=== PATIENT | male | born 1955 | race Caucasian/White ===

== ENCOUNTER 2024-04-17 12:23 | Emergency (ER) | payer MEDICARE, OTHER ==
[~2024-04-17] VITALS: Ht 170.2 cm; Wt 99.8 kg
[2024-04-17] MEDS: MORPHINE SULFATE INJ 2 MG/ML DISP.SYRIN IV ONE (14:30)
[2024-04-17] MEDS: ONDANSETRON HCL/PF 4 MG/2 ML VIAL IVP ONE (14:30)
[2024-04-17] MEDS: PANTOPRAZOLE 40 MG VIAL IV ONE (14:30)
[2024-04-17 15:14] LABS: BASOPHILS # (AUTO) 0.1 K/uL (0.0-0.2); BASOPHILS % (AUTO) 0.8 % (0.0-2.0); EOSINOPHILS # (AUTO) 0.5 K/uL (0.0-0.7); EOSINOPHILS % (AUTO) 4.3 % (0.0-6.0); HEMATOCRIT 46 % (39-51); HEMOGLOBIN 15.7 g/dL (13.5-17.5); LYMPHOCYTES # (AUTO) 1.6 K/uL (0.8-4.8); LYMPHOCYTES % (AUTO) 14.4 % (20.0-44.0); MEAN CORPUSCULAR HEMOGLOBIN 31 PG (26.0-33.0); MEAN CORPUSCULAR HGB CONC 34 g/dl (31.0-36.0); MEAN CORPUSCULAR VOLUME 89 fL (80-96); MONOCYTES # (AUTO) 0.8 K/uL (0.1-1.30); MONOCYTES % (AUTO) 6.8 % (2.0-12.0); NEUTROPHILS # (AUTO) 8.3 K/uL (1.8-8.9); NEUTROPHILS % (AUTO) 73.7 % (43.0-81.0); PLATELET COUNT (AUTO) 288 K/uL (150-450); RED BLOOD CELL COUNT(AUTO) 5.12 MIL/uL (4.5-6.0); RED CELL DISTRIBUTION WIDTH 13.9 % (11.5-15.0); WHITE BLOOD COUNT (AUTO) 11.2 K/uL (4.3-11.0)
[2024-04-17 15:19] LABS: CALCIUM, SERUM 9.3 mg/dL (8.5-10.1); POTASSIUM 3.8 mmol/L (3.5-5.1)
[2024-04-17] MEDS ORDERED: ONDANSETRON HCL/PF 4 MG/2 ML VIAL ONE (15:20)
[2024-04-17] MEDS ORDERED: PANTOPRAZOLE 40 MG VIAL ONE (15:20)
[2024-04-17] MEDS ORDERED: MORPHINE SULFATE INJ 4 MG/ML DISP.SYRIN ONE (15:20)
[2024-04-17 15:26] LABS: ALBUMIN 3.7 g/dL (3.4-5.0); BILIRUBIN,DIRECT 0.1 mg/dL (0.0-0.2); BILIRUBIN,TOTAL 0.4 mg/dL (0.2-1.0); TOTAL PROTEIN, SERUM 7.2 g/dL (6.4-8.2)
[2024-04-17 15:27] LABS: INR 0.95 (0.91-1.10); PROTHROMBIN TIME 10.1 SECS (9.2-11.1)
[2024-04-17] MEDS ORDERED: CT SWABBABLE VALVE TRANS SET 1 EA INFUS.SET MC ONE (15:52)
[2024-04-17] MEDS ORDERED: IOHEXOL-300 100 ML VIAL IV ONE (15:52)
[2024-04-17] MEDS ORDERED: IV NS 0.9% 250 ML IV ONE (15:54)
[2024-04-17 16:46] LABS: APPEARANCE,URINE Clear (CLEAR); BILIRUBIN,URINE Negative (NEGATIVE); BLOOD, URINE Negative Ery/uL (NEGATIVE); COLOR,URINE YELLOW (YELLOW); KETONES,URINE Trace mg/dL (NEGATIVE); LEUKOCYTE ESTERASE ,URINE Negative (NEGATIVE); NITRITE, URINE Negative (NEGATIVE); PROTEIN,URINE Negative (NEGATIVE); UGLUCOSE Negative (NEGATIVE); UROBILINOGEN,URINE 0.2 EU/dL (0.2)
[2024-04-17 16:50] LABS: ADD URINE CULTURE NO; BACTERIA,URINE None seen /HPF (None Seen); RBC,URINE 0-2 /HPF (0-2); SQUAMOUS EPITHELIAL CELL,UR None Seen /HPF (None Seen); WBC,URINE 0-2 /HPF (0-3)
[2024-04-17] MEDS ORDERED: KETOROLAC TROMETHAMINE INJ 30 MG/ML VIAL ONE (17:02)
[2024-04-17] MEDS: KETOROLAC TROMETHAMINE INJ 30 MG/ML VIAL IV ONE (17:07)
[2024-04-17] MEDS ORDERED: IBUP-1490 PO (18:19)
[2024-04-17] MEDS ORDERED: HYDR-3980 PO (18:19)
[2024-04-17 18:48] VITALS: BP 140/70; TEMP 97.9; O2SAT 96
== END 2024-04-17 18:49 | disposition home or self-care (01) ==
LOC: ER 12:34
DX: S22.31XA Fracture of one rib, right side, initial encounter for closed fracture (principal); I11.0 Hypertensive heart disease with heart failure; I50.9 Heart failure, unspecified; R10.11 Right upper quadrant pain; X58.XXXA Exposure to other specified factors, initial encounter; Y93.89 Activity, other specified; Y92.89 Other specified places as the place of occurrence of the external cause; Y99.8 Other external cause status
CPT/HCPCS: 99285; 96374; 71270; 96375; 71045; 93005; 85025; 80048; 83690; 80076; 81001; 36415; 84443; 85730; J1885; J2270; J2405; J7050; J2470; Q9967; 74178

== ENCOUNTER 2024-05-27 08:12 | Emergency (ER) | payer MEDICARE, OTHER ==
[~2024-05-27] VITALS: Ht 170.2 cm; Wt 99.8 kg
[~2024-05-27 08:12] MED LIST: HYDR-3980 PO; IBUP-1490 PO
[2024-05-27] MEDS ORDERED: LIDOCAINE 5% (PATCH) 1 EA PATCH TP ONE (08:23)
[2024-05-27] MEDS ORDERED: KETOROLAC TROMETHAMINE 15 MG/ML VIAL ONE (08:23)
[2024-05-27] MEDS ORDERED: CYCLOBENZAPRINE 10 MG TABLET ONE (08:24)
[2024-05-27] MEDS ORDERED: HYDROCODONE/APAP 5/325MG TABLET ONE (08:24)
[2024-05-27] MEDS: LIDOCAINE 5% (PATCH) 1 EA PATCH TP STA (08:30)
[2024-05-27] MEDS: CYCLOBENZAPRINE 10 MG TABLET PO ONE (08:32)
[2024-05-27] MEDS: KETOROLAC TROMETHAMINE 15 MG/ML VIAL IM ONE (08:32)
[2024-05-27] MEDS: HYDROCODONE/APAP 5/325MG TABLET PO ONE (08:33)
[2024-05-27] MEDS ORDERED: IBUP-1955 PO (09:37)
[2024-05-27] MEDS ORDERED: LIDO30AD10 TP (09:37)
[2024-05-27] MEDS ORDERED: CYCL5TAB PO (09:37)
[2024-05-27 10:47] VITALS: BP 165/90; TEMP 97.6; O2SAT 97
== END 2024-05-27 10:48 | disposition home or self-care (01) ==
LOC: ER 08:28
DX: S22.31XA Fracture of one rib, right side, initial encounter for closed fracture (principal); R07.81 Pleurodynia; I10 Essential (primary) hypertension; X58.XXXA Exposure to other specified factors, initial encounter; Y93.89 Activity, other specified; Y92.89 Other specified places as the place of occurrence of the external cause; Y99.8 Other external cause status
CPT/HCPCS: 99284; 71100; J1885

== ENCOUNTER 2024-06-12 04:39 | Inpatient (IN) | payer MEDICARE, OTHER ==
[~2024-06-12] VITALS: Ht 172.7 cm; Wt 116.1 kg
[~2024-06-12 04:39] MED LIST changes: +CYCL5TAB PO; +IBUP-1955 PO; +LIDO30AD10 TP
[2024-06-12 05:28] LABS: BASOPHILS # (AUTO) 0.1 K/uL (0.0-0.2); BASOPHILS % (AUTO) 0.7 % (0.0-2.0); EOSINOPHILS # (AUTO) 0.4 K/uL (0.0-0.7); EOSINOPHILS % (AUTO) 4.7 % (0.0-6.0); HEMATOCRIT 48 % (39-51); HEMOGLOBIN 16.7 g/dL (13.5-17.5); LYMPHOCYTES # (AUTO) 2.1 K/uL (0.8-4.8); LYMPHOCYTES % (AUTO) 24.6 % (20.0-44.0); MEAN CORPUSCULAR HEMOGLOBIN 31 PG (26.0-33.0); MEAN CORPUSCULAR HGB CONC 35 g/dl (31.0-36.0); MEAN CORPUSCULAR VOLUME 88 fL (80-96); MONOCYTES # (AUTO) 0.9 K/uL (0.1-1.30); MONOCYTES % (AUTO) 10.1 % (2.0-12.0); NEUTROPHILS # (AUTO) 5.2 K/uL (1.8-8.9); NEUTROPHILS % (AUTO) 59.9 % (43.0-81.0); PLATELET COUNT (AUTO) 294 K/uL (150-450); RED BLOOD CELL COUNT(AUTO) 5.46 MIL/uL (4.5-6.0); RED CELL DISTRIBUTION WIDTH 13.4 % (11.5-15.0); WHITE BLOOD COUNT (AUTO) 8.6 K/uL (4.3-11.0)
[2024-06-12] MEDS ORDERED: NITROGLYCERIN 0.4 MG/TAB BOTTLE ONE ×2 (05:33→09:51)
[2024-06-12] MEDS ORDERED: ASPIRIN 325 MG TABLET ONE (05:33)
[2024-06-12] MEDS: ASPIRIN 325 MG TABLET PO ONE (05:34)
[2024-06-12] MEDS: NITROGLYCERIN 0.4 MG/TAB BOTTLE SL ONE ×2 (05:34→10:32)
[2024-06-12 05:35] LABS: CALCIUM, SERUM 9.4 mg/dL (8.5-10.1); CARBON DIOXIDE 24 mmol/L (21-32); CHLORIDE 109 mmol/L (98-107); GLUCOSE 107 mg/dL (74-106); SODIUM SERUM 142 mmol/L (136-145); UREA NITROGEN, BLOOD 17 mg/dL (7-18)
[2024-06-12] MEDS ORDERED: MAGNESIUM HYDROXIDE 30 ML UDC PO PRN (08:00)
[2024-06-12] MEDS ORDERED: ACETAMINOPHEN 325 MG TABLET PO PRN (08:00)
[2024-06-12] MEDS ORDERED: MAG HYDROX/AL HYDROX/SIMETH 30 ML UDC PO PRN (08:00)
[2024-06-12] MEDS ORDERED: MORPHINE SULFATE INJ 4 MG/ML DISP.SYRIN IV PRN (08:00)
[2024-06-12] MEDS ORDERED: ONDANSETRON HCL/PF 4 MG/2 ML VIAL IVP PRN (08:00)
[2024-06-12 08:43] LABS: CHOLESTEROL 142 mg/dL (<200); HDL CHOLESTEROL 36 mg/dL (40-60); LDL 87 mg/dL (0-99); TRIGLYCERIDES 105 mg/dL (30-150)
[2024-06-12] MEDS ORDERED: HYDR-3976 PO (08:45)
[2024-06-12] MEDS ORDERED: LISI-768 PO (08:45)
[2024-06-12] MEDS ORDERED: ATOR20TA PO (08:45)
[2024-06-12] MEDS ORDERED: CHOL200059 PO (08:45)
[2024-06-12] MEDS ORDERED: PANTOPRAZOLE 40 MG VIAL IV SCH (09:00)
[2024-06-12] MEDS ORDERED: METOPROLOL TARTRATE INJ 5 MG/5 ML AMPUL ONE ×2 (09:51→10:27)
[2024-06-12] MEDS: METOPROLOL TARTRATE 50 MG TABLET PO SCH (10:15)
[2024-06-12] MEDS ORDERED: METOPROLOL TARTRATE INJ 5 MG/5 ML AMPUL IVP PRN (10:30)
[2024-06-12 11:40] VITALS: BP 129/66; TEMP 98.1; O2SAT 96
[2024-06-12] MEDS: PANTOPRAZOLE 40 MG TABLET.DR PO SCH (11:52)
[2024-06-12] MEDS: ATORVASTATIN 40 MG TABLET PO SCH (11:52)
[2024-06-12] MEDS: ASPIRIN 81 MG TAB.CHEW PO SCH (11:52)
[2024-06-12] MEDS: ENOXAPARIN SODIUM 100 MG/ML DISP.SYRIN SQ SCH (12:00)
[2024-06-12] MEDS: VALSARTAN 80 MG TABLET PO SCH (12:15)
[2024-06-12 16:00] VITALS: BP 146/88; TEMP 98.6; O2SAT 98
[2024-06-12 20:30] VITALS: BP 119/47; TEMP 98.2; O2SAT 95
[2024-06-12] MEDS: ZOLPIDEM TARTRATE 5 MG TABLET PO PRN (22:09)
[2024-06-13 00:50] VITALS: BP 95/73; TEMP 98.4; O2SAT 95
[2024-06-13 04:23] VITALS: BP 134/59; TEMP 98.2; O2SAT 95
[2024-06-13 08:00] VITALS: BP 137/72; TEMP 97.9; O2SAT 98
[2024-06-13] MEDS: ASPIRIN EC 81 MG TABLET.DR PO SCH (08:33)
[2024-06-13] MEDS: METOPROLOL SUCCINATE 50 MG TAB.SR.24H PO SCH (08:39)
[2024-06-13] MEDS ORDERED: ATOR40TA PO (11:38)
[2024-06-13] MEDS ORDERED: ASPI-1169 PO (11:44)
[2024-06-13] MEDS ORDERED: VALS80TA31 PO (11:44)
[2024-06-13 12:00] VITALS: BP 104/40; TEMP 97.7; O2SAT 93
== END 2024-06-13 16:02 | disposition home or self-care (01) | DRG 282 ==
LOC: ER 04:42 → TELE 09:06
DX: I21.4 Non-ST elevation (NSTEMI) myocardial infarction (principal); E78.5 Hyperlipidemia, unspecified; E66.01 Morbid (severe) obesity due to excess calories; I10 Essential (primary) hypertension; Z79.899 Other long term (current) drug therapy; E78.00 Pure hypercholesterolemia, unspecified; G47.33 Obstructive sleep apnea (adult) (pediatric); Z71.6 Tobacco abuse counseling; F17.210 Nicotine dependence, cigarettes, uncomplicated
CPT/HCPCS: 36415; 71045-TC; 75574; 80048-TC; 80061-TC; 84484-TC; 85025-TC; 93307-TC; G0378; J1650; J3490

== ENCOUNTER 2024-08-27 10:03 | Emergency (ER) | payer MEDICARE, OTHER ==
[~2024-08-27] VITALS: Ht 172.7 cm; Wt 113.4 kg
[~2024-08-27 10:03] MED LIST changes: +ASPI-1169 PO; +ATOR40TA PO; +CHOL200059 PO; -CYCL5TAB PO; +HYDR-3976 PO; -HYDR-3980 PO; -IBUP-1490 PO; -IBUP-1955 PO; -LIDO30AD10 TP; +LISI-768 PO; +VALS80TA31 PO
[2024-08-27] MEDS ORDERED: VALSARTAN 80 MG TABLET PO ONE (10:30)
[2024-08-27] MEDS ORDERED: LISI-768 PO (10:32)
[2024-08-27] MEDS ORDERED: LISINOPRIL (10MG) 10 MG TABLET ONE (10:45)
[2024-08-27] MEDS: LISINOPRIL (10MG) 10 MG TABLET PO SCH (10:52)
[2024-08-27 10:53] VITALS: BP 158/64; TEMP 98.6; O2SAT 98
== END 2024-08-27 10:54 | disposition home or self-care (01) ==
LOC: ER 10:07
DX: I10 Essential (primary) hypertension (principal); F17.200 Nicotine dependence, unspecified, uncomplicated; Z79.82 Long term (current) use of aspirin; Z79.899 Other long term (current) drug therapy

== ENCOUNTER 2025-02-17 08:35 | Inpatient (IN) | payer MEDICARE, OTHER ==
[~2025-02-17] VITALS: Ht 172.7 cm; Wt 122.0 kg
[2025-02-17 09:20] LABS: PLATELET COUNT (AUTO) 266 K/uL (150-450); RED BLOOD CELL COUNT(AUTO) 5.18 MIL/uL (4.5-6.0); RED CELL DISTRIBUTION WIDTH 13.9 % (11.5-15.0); WHITE BLOOD COUNT (AUTO) 13.3 K/uL (4.3-11.0)
[2025-02-17 09:28] LABS: CALCIUM, SERUM 9.3 mg/dL (8.5-10.1); CREATININE 2.2 mg/dL (0.6-1.3); SODIUM SERUM 142 mmol/L (136-145); UREA NITROGEN, BLOOD 33 mg/dL (7-18)
[2025-02-17 09:29] LABS: ALCOHOL, BLOOD < 3 mg/dL (0-10)
[2025-02-17] MEDS ORDERED: ATOR20TA PO (09:51)
[2025-02-17] MEDS ORDERED: BUPR-54 PO (09:51)
[2025-02-17 11:23] LABS: APPEARANCE,URINE CLEAR (CLEAR); BLOOD, URINE NEGATIVE Ery/uL (NEGATIVE); LEUKOCYTE ESTERASE ,URINE NEGATIVE (NEGATIVE); NITRITE, URINE NEGATIVE (NEGATIVE); UGLUCOSE NEGATIVE (NEGATIVE)
[2025-02-17 11:25] LABS: ADD URINE CULTURE NO; SQUAMOUS EPITHELIAL CELL,UR Few /HPF (None Seen)
[2025-02-17 11:26] LABS: AMPHETAMINE, URINE NEGATIVE (NEGATIVE); BARBITURATE, URINE NEGATIVE (NEGATIVE); BENZODIAZEPINE, URINE NEGATIVE (NEGATIVE); CANNABINOID, URINE NEGATIVE (NEGATIVE); OPIATE, URINE NEGATIVE (NEGATIVE)
[2025-02-17 11:29] LABS: COCCAINE, URINE POSITIVE (NEGATIVE)
[2025-02-17] MEDS ORDERED: HYDROCODONE/APAP 5/325MG TABLET ONE (12:05)
[2025-02-17] MEDS: HYDROCODONE/APAP 5/325MG TABLET PO STA (12:09)
[2025-02-17 12:30] VITALS: BP 142/65; TEMP 97.5; O2SAT 96
[2025-02-17] MEDS ORDERED: BUPROPION XL 150 MG TAB.ER.24 PO PRN (12:30)
[2025-02-17] MEDS ORDERED: MAGNESIUM HYDROXIDE 30 ML UDC PO PRN (12:30)
[2025-02-17] MEDS ORDERED: Z GUARD REMEDY 4 OZ OINT TP PRN (12:30)
[2025-02-17] MEDS ORDERED: MAG HYDROX/AL HYDROX/SIMETH 30 ML UDC PO PRN (12:30)
[2025-02-17] MEDS ORDERED: ONDANSETRON HCL/PF 4 MG/2 ML VIAL IVP PRN (12:30)
[2025-02-17] MEDS: ASPIRIN EC 325 MG TABLET.DR PO SCH (13:01)
[2025-02-17 16:00] VITALS: BP 104/68; TEMP 97.7; O2SAT 95
[2025-02-17] MEDS: BLOOD SUGAR DIAGNOSTIC 1 EACH STRIP IN SCH (16:45)
[2025-02-17] MEDS: LISINOPRIL (5MG) 5 MG TABLET PO SCH (16:46)
[2025-02-17] MEDS ORDERED: BLOOD SUGAR DIAGNOSTIC 1 EACH STRIP IN SCH (18:00)
[2025-02-17 20:00] VITALS: BP 130/67; TEMP 97.7; O2SAT 97
[2025-02-17] MEDS: ACETAMINOPHEN 325 MG TABLET PO PRN (20:45)
[2025-02-18] VITALS: BP 132/60; TEMP 97.7; O2SAT 94
[2025-02-18 05:00] VITALS: BP 134/64; TEMP 97.8; O2SAT 95
[2025-02-18 07:49] LABS: PLATELET COUNT (AUTO) 237 K/uL (150-450); RED BLOOD CELL COUNT(AUTO) 5.10 MIL/uL (4.5-6.0); RED CELL DISTRIBUTION WIDTH 14.0 % (11.5-15.0); WHITE BLOOD COUNT (AUTO) 10.5 K/uL (4.3-11.0)
[2025-02-18 08:00] VITALS: BP 127/60; TEMP 97.3; O2SAT 95
[2025-02-18 08:03] LABS: CALCIUM, SERUM 9.1 mg/dL (8.5-10.1); CREATININE 1.5 mg/dL (0.6-1.3); PHOSPHORUS 3.5 mg/dL (2.5-4.9); SODIUM SERUM 141.0 mmol/L (136-145); UREA NITROGEN, BLOOD 33.0 mg/dL (7-18)
[2025-02-18 08:48] LABS: LDL 110.0 mg/dL (0-99)
[2025-02-18] MEDS: ATORVASTATIN 10 MG TABLET PO SCH (10:22)
[2025-02-18] MEDS: IV 1/2NS 1000 ML 1,000 ML IV SCH (12:12)
[2025-02-18 16:00] VITALS: BP 126/70; TEMP 97.3; O2SAT 98
[2025-02-18 21:54] VITALS: BP 126/70; TEMP 97.3; O2SAT 94
[2025-02-19] VITALS: BP 130/55; TEMP 98.1; O2SAT 97
[2025-02-19 04:59] VITALS: BP 126/65; TEMP 97.8; O2SAT 97
[2025-02-19 05:02] VITALS: BP 126/65; TEMP 97.8; O2SAT 97
[2025-02-19 08:00] VITALS: BP 132/74; TEMP 97.7; O2SAT 92
[2025-02-19 08:19] LABS: PLATELET COUNT (AUTO) 251 K/uL (150-450); RED BLOOD CELL COUNT(AUTO) 5.24 MIL/uL (4.5-6.0); RED CELL DISTRIBUTION WIDTH 13.6 % (11.5-15.0); WHITE BLOOD COUNT (AUTO) 8.6 K/uL (4.3-11.0)
[2025-02-19 08:46] LABS: CALCIUM, SERUM 8.9 mg/dL (8.5-10.1); CREATININE 1.1 mg/dL (0.6-1.3); SODIUM SERUM 141.0 mmol/L (136-145); UREA NITROGEN, BLOOD 24.0 mg/dL (7-18)
[2025-02-19] MEDS: METOPROLOL SUCCINATE 50 MG TAB.SR.24H PO SCH (10:07)
[2025-02-19] MEDS ORDERED: IV NS 0.9% 250 ML IV ONE (10:36)
[2025-02-19] MEDS ORDERED: IOHEXOL-350 100 ML VIAL IV ONE (10:36)
[2025-02-19] MEDS: IV 1/2NS 1000 ML 1,000 ML IV PRN (13:26)
[2025-02-19 16:00] VITALS: BP 119/64; TEMP 97.7; O2SAT 95
[2025-02-19 20:00] VITALS: BP 132/72; TEMP 97.3; O2SAT 94
[2025-02-20] VITALS: BP 128/60; TEMP 98.4; O2SAT 98
[2025-02-20 04:00] VITALS: BP 107/70; TEMP 97.5; O2SAT 96
[2025-02-20 08:00] VITALS: BP 129/69; TEMP 98.1; O2SAT 96
[2025-02-20] MEDS ORDERED: METO50TA7 PO (10:36)
[2025-02-20] MEDS ORDERED: ASPI-1169 PO (10:37)
[2025-02-20 10:46] LABS: PLATELET COUNT (AUTO) 229 K/uL (150-450); RED BLOOD CELL COUNT(AUTO) 5.08 MIL/uL (4.5-6.0); RED CELL DISTRIBUTION WIDTH 13.4 % (11.5-15.0); WHITE BLOOD COUNT (AUTO) 8.1 K/uL (4.3-11.0)
[2025-02-20 10:55] LABS: CALCIUM, SERUM 8.9 mg/dL (8.5-10.1); CREATININE 1.1 mg/dL (0.6-1.3); SODIUM SERUM 139.0 mmol/L (136-145); UREA NITROGEN, BLOOD 16.0 mg/dL (7-18)
[2025-02-20 12:00] VITALS: BP 135/78; TEMP 97.9; O2SAT 94
[2025-02-20 16:00] VITALS: BP 118/68; TEMP 98.4; O2SAT 100
[2025-02-20 20:00] VITALS: BP 115/74; TEMP 97.3; O2SAT 96
[2025-02-21] VITALS: BP 118/49; TEMP 98.1; O2SAT 94
[2025-02-21 04:48] VITALS: BP 148/75; TEMP 97.8; O2SAT 96
[2025-02-21 07:30] VITALS: BP 139/64; TEMP 97.5; O2SAT 93
[2025-02-21 16:00] VITALS: BP 139/71; TEMP 97.6; O2SAT 97
[2025-02-21 20:00] VITALS: BP 141/72; TEMP 97.7; O2SAT 95; O2SAT 97
[2025-02-22] VITALS: BP 133/73; TEMP 97.8; O2SAT 95
[2025-02-22 05:00] VITALS: BP 143/82; TEMP 98.1; O2SAT 94
[2025-02-22 07:00] VITALS: BP 133/103; TEMP 97.5; O2SAT 95
[2025-02-22] MEDS ORDERED: IOHEXOL-350 100 ML VIAL IV ONE (11:17)
[2025-02-22] MEDS ORDERED: IV NS 0.9% 250 ML IV ONE (11:18)
[2025-02-22 16:32] VITALS: BP 143/82
== END 2025-02-22 17:30 | disposition home health service (06) | DRG 682 ==
LOC: ER 08:38 → TELE 11:37
PROVIDERS: ADMIT Internal Medicine; ATTEND Internal Medicine
DX: N17.0 Acute kidney failure with tubular necrosis (principal); I21.A1 Myocardial infarction type 2; G45.9 Transient cerebral ischemic attack, unspecified; I10 Essential (primary) hypertension; E66.9 Obesity, unspecified; Z68.41 Body mass index [BMI] 40.0-44.9, adult; F32.9 Major depressive disorder, single episode, unspecified; R42 Dizziness and giddiness; E86.0 Dehydration; G47.33 Obstructive sleep apnea (adult) (pediatric); E78.5 Hyperlipidemia, unspecified; F17.200 Nicotine dependence, unspecified, uncomplicated; Z79.899 Other long term (current) drug therapy
CPT/HCPCS: 36415; 70450-TC; 70496-TC; 70498-TC; 71045-TC; 75574; 80048-TC; 80061-TC; 81001; 82962-TC; 83735-TC; 83880; 84100-TC; 84439-TC; 84443-TC; 84484-TC; 85025-TC; 85730-TC; 92526; 92611; 93307-TC; 97110-TC; 97116-TC; 97530-TC; 97535-TC; A4223; A6254; G0378; G0480; J3490; J7050; Q9967